=== PATIENT | female | born 1960 | race Caucasian/White ===

== ENCOUNTER 2024-08-18 06:38 | Emergency (ER) | payer OTHER, MEDICAID ==
[2024-08-18] MEDS: Sodium Chloride 0.9% 1,000 ML IV ONE (07:04)
[2024-08-18 07:12] LABS: BASOPHILS PERCENT AUTO 0.7 % (0.2-1.5); EOSINOPHILS ABSOLUTE AUTO 0.1 x10-3/uL (0.0-0.8); EOSINOPHILS PERCENT AUTO 1.6 % (0.6-8.1); HEMATOCRIT 38.3 % (34.2-48.2); HEMOGLOBIN 12.6 g/dL (11.4-15.5); LYMPHOCYTES ABSOLUTE AUTO 1.3 x10-3/uL (1.0-4.4); LYMPHOCYTES PERCENT AUTO 20.6 % (18.4-52.1); MEAN CORPUSCULAR HEMOGLOBIN 31.7 pg (23.9-33.9); MEAN CORPUSCULAR HGB CONC 32.9 g/dL (31.9-34.8); MEAN CORPUSCULAR VOLUME 96.3 fL (76.7-100.5); MEAN PLATELET VOLUME 9.8 fL (7.1-12.4); MONOCYTES ABSOLUTE AUTO 0.6 x10-3/uL (0.3-1.0); NEUTROPHILS ABSOLUTE AUTO 4.1 x10-3/uL (1.5-6.3); NEUTROPHILS PERCENT AUTO 67.1 % (30.8-76.2); PLATELET COUNT,PLT 188 x10(3)uL (151-488); RED BLOOD CELL COUNT 3.98 x10(6)uL (3.60-5.20); WHITE BLOOD CELL COUNT,WBC 6.1 x10-3/uL (3.0-10.3)
[2024-08-18 07:17] LABS: CALCIUM 8.8 mg/dL (8.6-10.2); CARBON DIOXIDE,CO2 29 mmol/L (21-32); CHLORIDE,CL 101 mmol/L (100-110); CREATININE 0.5 mg/dL (0.55-1.02); EST CRCL DRUG DOSING (CG) 79.52 mL/min; ESTIMATED GFR 104 mL/min (>60); GLUCOSE RANDOM 106 mg/dL (80-116); POTASSIUM,K 3.3 mmol/L (3.5-5.3); SODIUM,NA 140 mmol/L (135-145)
[2024-08-18 07:23] LABS: A/G RATIO 0.9; ALANINE AMINOTRANSFERASE,ALT 15 U/L (12-36); ALBUMIN 3.2 g/dL (3.2-4.6); ASPARTATE AMNIOTRANSFERASE,AST 23 IU/L (5-25); BILIRUBIN TOTAL 0.4 mg/dL (0.1-1.3); PROTEIN TOTAL,TP 6.7 g/dL (6.0-8.0)
[2024-08-18 07:35] LABS: ALKALINE PHOSPHATASE 162 IU/L (56-112)
[2024-08-18 07:36] LABS: BLOOD UREA NITROGEN,BUN < 5 mg/dL (7-18)
[2024-08-18 09:06] LABS: APPEARANCE,URINE CLEAR (CLEAR); BILIRUBIN,URINE NEGATIVE (NEGATIVE); COLOR,URINE YELLOW (YELLOW); GLUCOSE,URINE NORMAL (NORMAL); KETONES,URINE 15 mg/dL (NEGATIVE); LEUKOCYTE ESTERASE,URINE NEGATIVE (NEGATIVE); NITRITE,URINE NEGATIVE (NEGATIVE); OCCULT BLOOD,URINE NEGATIVE (NEGATIVE); PROTEIN,URINE NEGATIVE (NEGATIVE); SQUAMOUS EPITHELIAL CELLS,UR OCCASIONAL (NS,R,O); UROBILINOGEN,URINE NORMAL (NEGATIVE); WBC,URINE 0-5 (0-5)
[2024-08-18 09:07] LABS: BACTERIA,URINE FEW (NS)
== END 2024-08-18 10:08 | disposition home or self-care (01) ==
LOC: FB.ED 06:38
DX: R53.81 Other malaise (principal)
CPT/HCPCS: 36415; 70450; 71045; 80053; 81001; 83690; 84443; 85025; 86140; 93005; 96360; 96361; 99285; J7030

== ENCOUNTER 2024-08-22 21:34 | Emergency (ER) | payer OTHER, MEDICAID ==
[2024-08-22 23:29] LABS: BASOPHILS PERCENT AUTO 0.6 % (0.2-1.5); EOSINOPHILS ABSOLUTE AUTO 0.3 x10-3/uL (0.0-0.8); EOSINOPHILS PERCENT AUTO 3.5 % (0.6-8.1); HEMATOCRIT 36.4 % (34.2-48.2); LYMPHOCYTES ABSOLUTE AUTO 1.2 x10-3/uL (1.0-4.4); LYMPHOCYTES PERCENT AUTO 14.1 % (18.4-52.1); MEAN CORPUSCULAR HEMOGLOBIN 32.3 pg (23.9-33.9); MEAN CORPUSCULAR HGB CONC 32.9 g/dL (31.9-34.8); MEAN CORPUSCULAR VOLUME 98.2 fL (76.7-100.5); MEAN PLATELET VOLUME 9.4 fL (7.1-12.4); MONOCYTES ABSOLUTE AUTO 0.6 x10-3/uL (0.3-1.0); MONOCYTES PERCENT AUTO 7.8 % (4.4-15.7); NEUTROPHILS ABSOLUTE AUTO 6.1 x10-3/uL (1.5-6.3); PLATELET COUNT,PLT 216 x10(3)uL (151-488); RED BLOOD CELL COUNT 3.71 x10(6)uL (3.60-5.20); RED CELL DISTRIBUTION WIDTH 15.9 % (12.3-16.5); WHITE BLOOD CELL COUNT,WBC 8.2 x10-3/uL (3.0-10.3)
[2024-08-22 23:36] LABS: BLOOD UREA NITROGEN,BUN 21 mg/dL (7-18); CALCIUM 8.7 mg/dL (8.6-10.2); CARBON DIOXIDE,CO2 28 mmol/L (21-32); CHLORIDE,CL 104 mmol/L (100-110); CREATININE 0.7 mg/dL (0.55-1.02); ESTIMATED GFR 96 mL/min (>60); GLUCOSE RANDOM 103 mg/dL (80-116); POTASSIUM,K 3.8 mmol/L (3.5-5.3); SODIUM,NA 141 mmol/L (135-145)
[2024-08-22] MEDS: HYDROmorphone 2 MG/ML SDV IVPUSH STA (23:38)
[2024-08-22 23:40] LABS: INR 1.12 (1.00-1.24); PROTHROMBIN TIME 11.5 sec (9.0-11.1)
[2024-08-22 23:42] LABS: A/G RATIO 0.9; ALANINE AMINOTRANSFERASE,ALT 22 U/L (12-36); ALBUMIN 3.1 g/dL (3.2-4.6); ALKALINE PHOSPHATASE 155 IU/L (56-112); ASPARTATE AMNIOTRANSFERASE,AST 25 IU/L (5-25); BILIRUBIN TOTAL 0.3 mg/dL (0.1-1.3); PROTEIN TOTAL,TP 6.6 g/dL (6.0-8.0); PTT,PARTIAL THROMBOPLSTIN TIME 30.1 SECONDS (24.4-33.2)
== END 2024-08-23 01:06 ==
LOC: FB.ED 21:34
DX: S72.334A Nondisplaced oblique fracture of shaft of right femur, initial encounter for closed fracture (principal); I10 Essential (primary) hypertension; J44.9 Chronic obstructive pulmonary disease, unspecified; F17.210 Nicotine dependence, cigarettes, uncomplicated; Z79.899 Other long term (current) drug therapy; W10.9XXA Fall (on) (from) unspecified stairs and steps, initial encounter
CPT/HCPCS: 36415; 73502; 73562; 73590; 80053; 85025; 85610; 85730; 96374; 99284; 99285; J1171

== ENCOUNTER 2025-05-16 15:54 | Emergency (ER) | payer MEDICARE ==
[2025-05-16] MEDS: Sodium Chloride 0.9% 1,000 ML IV ONE (16:26)
[2025-05-16 16:37] LABS: BLOOD UREA NITROGEN,BUN 12 mg/dL (7-18); CALCIUM 8.9 mg/dL (8.6-10.2); CARBON DIOXIDE,CO2 30 mmol/L (21-32); CHLORIDE,CL 104 mmol/L (100-110); CREATININE 0.5 mg/dL (0.55-1.02); ESTIMATED GFR 103 mL/min (>60); GLUCOSE RANDOM 149 mg/dL (80-116); POTASSIUM,K 3.8 mmol/L (3.5-5.3); SODIUM,NA 136 mmol/L (135-145)
[2025-05-16 16:43] LABS: ALANINE AMINOTRANSFERASE,ALT 16 U/L (12-36); ALBUMIN 2.9 g/dL (3.2-4.6); ALKALINE PHOSPHATASE 82 IU/L (56-112); ASPARTATE AMNIOTRANSFERASE,AST 15 IU/L (5-25); BILIRUBIN TOTAL 0.3 mg/dL (0.1-1.3); MAGNESIUM 1.5 mg/dL (1.8-2.5); PROTEIN TOTAL,TP 5.8 g/dL (6.0-8.0)
[2025-05-16 16:57] LABS: LACTIC ACID 0.9 mmol/L (0.4-2.0)
[2025-05-16] MEDS: Magnesium Sulfate 2 GM/50 mL 2 GM in Premix Bag 1 BAG IV ONE (17:45)
[2025-05-16] MEDS: Cephalexin 250 MG Cap PO ONE (17:51)
== END 2025-05-16 18:15 | disposition home or self-care (01) ==
LOC: FB.ED 15:54
DX: T81.49XA Infection following a procedure, other surgical site, initial encounter (principal); E83.42 Hypomagnesemia; E77.8 Other disorders of glycoprotein metabolism; I10 Essential (primary) hypertension; J44.9 Chronic obstructive pulmonary disease, unspecified; F17.210 Nicotine dependence, cigarettes, uncomplicated; Z79.899 Other long term (current) drug therapy; Z79.82 Long term (current) use of aspirin
CPT/HCPCS: 36415; 80053; 83605; 83735; 96361; 96365; 99283; A9270; J3475; J7030

== ENCOUNTER 2025-07-12 14:32 | Emergency (ER) | payer MEDICARE, MEDICAID ==
[2025-07-12] MEDS ORDERED: Sodium Chloride 0.9% 10 ML Syringe FLUSH PRN (15:19)
[2025-07-12 15:49] LABS: BASOPHILS ABSOLUTE AUTO 0.0 x10-3/uL (0.0-0.1); BASOPHILS PERCENT AUTO 0.3 % (0.2-1.5); EOSINOPHILS ABSOLUTE AUTO 0.0 x10-3/uL (0.0-0.8); EOSINOPHILS PERCENT AUTO 0.3 % (0.6-8.1); LYMPHOCYTES ABSOLUTE AUTO 1.1 x10-3/uL (1.0-4.4); LYMPHOCYTES PERCENT AUTO 9.0 % (18.4-52.1); MEAN PLATELET VOLUME 10.0 fL (7.1-12.4); MONOCYTES ABSOLUTE AUTO 1.2 x10-3/uL (0.3-1.0); MONOCYTES PERCENT AUTO 9.7 % (4.4-15.7); NEUTROPHILS ABSOLUTE AUTO 9.6 x10-3/uL (1.5-6.3); NEUTROPHILS PERCENT AUTO 80.7 % (30.8-76.2); PLATELET COUNT,PLT 254 x10(3)uL (151-488); RED BLOOD CELL COUNT 3.77 x10(6)uL (3.60-5.20); RED CELL DISTRIBUTION WIDTH 14.7 % (12.3-16.5); WHITE BLOOD CELL COUNT,WBC 11.9 x10-3/uL (3.0-10.3)
[2025-07-12 15:50] LABS: BLOOD UREA NITROGEN,BUN 22 mg/dL (7-18); CARBON DIOXIDE,CO2 30 mmol/L (21-32); CHLORIDE,CL 100 mmol/L (100-110); CREATININE 0.9 mg/dL (0.55-1.02); EST CRCL DRUG DOSING (CG) 42.71 mL/min; ESTIMATED GFR 71 mL/min (>60); GLUCOSE RANDOM 100 mg/dL (80-116); POTASSIUM,K 4.1 mmol/L (3.5-5.3); SODIUM,NA 136 mmol/L (135-145)
[2025-07-12 15:56] LABS: A/G RATIO 0.8; ALANINE AMINOTRANSFERASE,ALT 21 U/L (12-36); ASPARTATE AMNIOTRANSFERASE,AST 26 IU/L (5-25); BILIRUBIN TOTAL 0.3 mg/dL (0.1-1.3); PROTEIN TOTAL,TP 6.9 g/dL (6.0-8.0)
[2025-07-12] MEDS: Iopamidol 755 Mg/ML 100 ML Bottle IV ONE (18:05)
[2025-07-12 19:49] LABS: GLUCOSE,URINE NORMAL (NORMAL); OCCULT BLOOD,URINE TRACE (NEGATIVE)
[2025-07-12 19:53] LABS: APPEARANCE,URINE SLIGHTLY CLOUDY (CLEAR)
[2025-07-12 19:54] LABS: SQUAMOUS EPITHELIAL CELLS,UR FEW (NS,R,O)
== END 2025-07-12 22:45 | disposition home or self-care (01) ==
LOC: FB.ED 14:32
DX: N39.0 Urinary tract infection, site not specified (principal); T81.718A Complication of other artery following a procedure, not elsewhere classified, initial encounter; I10 Essential (primary) hypertension; J44.9 Chronic obstructive pulmonary disease, unspecified; F17.200 Nicotine dependence, unspecified, uncomplicated; Z79.899 Other long term (current) drug therapy
CPT/HCPCS: 36415; 73706; 74174; 80053; 81001; 83735; 85025; 86140; 87086; 87088; 87186; 96374; 99284; J0696; Q9967

== ENCOUNTER 2025-07-13 00:23 | Emergency (ER) | payer MEDICARE, MEDICAID | END 2025-07-13 03:06 | disposition home or self-care (01) | LOC: FB.ED 00:23 | DX: L76.22 Postprocedural hemorrhage of skin and subcutaneous tissue following other procedure (principal); I10 Essential (primary) hypertension; J44.9 Chronic obstructive pulmonary disease, unspecified; Z79.82 Long term (current) use of aspirin; Z79.899 Other long term (current) drug therapy | CPT/HCPCS: 36415; 85018; 96365; 99283-25 ==

== ENCOUNTER 2025-08-16 19:16 | Emergency (ER) | payer MEDICARE, MEDICAID ==
[2025-08-16] MEDS ORDERED: Sodium Chloride 0.9% 10 ML Syringe FLUSH PRN (19:55)
[2025-08-16 20:13] LABS: BASOPHILS ABSOLUTE AUTO 0.0 x10-3/uL (0.0-0.1); BASOPHILS PERCENT AUTO 0.4 % (0.2-1.5); EOSINOPHILS ABSOLUTE AUTO 0.0 x10-3/uL (0.0-0.8); EOSINOPHILS PERCENT AUTO 0.2 % (0.6-8.1); LYMPHOCYTES ABSOLUTE AUTO 1.5 x10-3/uL (1.0-4.4); LYMPHOCYTES PERCENT AUTO 14.3 % (18.4-52.1); MEAN PLATELET VOLUME 8.3 fL (7.1-12.4); MONOCYTES ABSOLUTE AUTO 0.8 x10-3/uL (0.3-1.0); MONOCYTES PERCENT AUTO 7.9 % (4.4-15.7); NEUTROPHILS ABSOLUTE AUTO 8.0 x10-3/uL (1.5-6.3); NEUTROPHILS PERCENT AUTO 77.2 % (30.8-76.2); PLATELET COUNT,PLT 445 x10(3)uL (151-488); RED BLOOD CELL COUNT 3.00 x10(6)uL (3.60-5.20); RED CELL DISTRIBUTION WIDTH 14.9 % (12.3-16.5); WHITE BLOOD CELL COUNT,WBC 10.4 x10-3/uL (3.0-10.3)
[2025-08-16 20:17] LABS: BLOOD UREA NITROGEN,BUN 10 mg/dL (7-18); CARBON DIOXIDE,CO2 31 mmol/L (21-32); CHLORIDE,CL 98 mmol/L (100-110); CREATININE 0.4 mg/dL (0.55-1.02); EST CRCL DRUG DOSING (CG) 102.04 mL/min; ESTIMATED GFR 109 mL/min (>60); GLUCOSE RANDOM 86 mg/dL (80-116); POTASSIUM,K 3.1 mmol/L (3.5-5.3); SODIUM,NA 135 mmol/L (135-145)
[2025-08-16 20:22] LABS: A/G RATIO 0.5; ALANINE AMINOTRANSFERASE,ALT 12 U/L (12-36); ASPARTATE AMNIOTRANSFERASE,AST 26 IU/L (5-25); BILIRUBIN TOTAL 0.2 mg/dL (0.1-1.3); PROTEIN TOTAL,TP 6.3 g/dL (6.0-8.0)
[2025-08-16] MEDS: Ondansetron 4 MG/2 ML SDV IVPUSH ONE (20:30)
[2025-08-16] MEDS: Ketorolac 30 MG/ML SDV IVPUSH ONE (20:49)
[2025-08-16] MEDS: Iopamidol 755 Mg/ML 100 ML Bottle IV SCH (21:11)
[2025-08-16 22:19] LABS: GLUCOSE,URINE NORMAL (NORMAL); OCCULT BLOOD,URINE NEGATIVE (NEGATIVE)
[2025-08-16 22:25] LABS: APPEARANCE,URINE SLIGHTLY CLOUDY (CLEAR)
[2025-08-16 22:26] LABS: SQUAMOUS EPITHELIAL CELLS,UR MODERATE (NS,R,O)
[2025-08-16] MEDS: Potassium Chloride 20 MEQ Tab.ER PO ONE (23:09)
== END 2025-08-16 23:58 | disposition home or self-care (01) ==
LOC: FB.ED 19:16
DX: K52.9 Noninfective gastroenteritis and colitis, unspecified (principal); N39.0 Urinary tract infection, site not specified; E87.6 Hypokalemia; E83.42 Hypomagnesemia; E86.0 Dehydration; D50.9 Iron deficiency anemia, unspecified; I10 Essential (primary) hypertension; J44.9 Chronic obstructive pulmonary disease, unspecified; F17.200 Nicotine dependence, unspecified, uncomplicated; Z79.899 Other long term (current) drug therapy; Z79.82 Long term (current) use of aspirin
CPT/HCPCS: 36415; 74177; 80053; 81001; 83605; 83735; 85025; 86140; 87086; 87088; 87186; 96361; 96374; 96375; 99285; A9270; J0696; J1885; J2405; J7030; Q9967

== ENCOUNTER 2025-09-02 10:01 | Emergency (ER) | payer MEDICARE, MEDICAID ==
[2025-09-02 11:17] LABS: BASOPHILS ABSOLUTE AUTO 0.1 x10-3/uL (0.0-0.1); BASOPHILS PERCENT AUTO 0.7 % (0.2-1.5); EOSINOPHILS ABSOLUTE AUTO 0.0 x10-3/uL (0.0-0.8); EOSINOPHILS PERCENT AUTO 0.2 % (0.6-8.1); LYMPHOCYTES ABSOLUTE AUTO 1.3 x10-3/uL (1.0-4.4); LYMPHOCYTES PERCENT AUTO 14.4 % (18.4-52.1); MEAN PLATELET VOLUME 8.8 fL (7.1-12.4); MONOCYTES ABSOLUTE AUTO 0.8 x10-3/uL (0.3-1.0); MONOCYTES PERCENT AUTO 9.0 % (4.4-15.7); NEUTROPHILS ABSOLUTE AUTO 6.8 x10-3/uL (1.5-6.3); NEUTROPHILS PERCENT AUTO 75.7 % (30.8-76.2); PLATELET COUNT,PLT 416 x10(3)uL (151-488); RED CELL DISTRIBUTION WIDTH 17.0 % (12.3-16.5); WHITE BLOOD CELL COUNT,WBC 9.0 x10-3/uL (3.0-10.3)
[2025-09-02 11:20] LABS: BLOOD UREA NITROGEN,BUN 9 mg/dL (7-18); CARBON DIOXIDE,CO2 32 mmol/L (21-32); CHLORIDE,CL 98 mmol/L (100-110); CREATININE 0.5 mg/dL (0.55-1.02); EST CRCL DRUG DOSING (CG) 91.14 mL/min; ESTIMATED GFR 103 mL/min (>60); GLUCOSE RANDOM 135 mg/dL (80-116); POTASSIUM,K 3.0 mmol/L (3.5-5.3); SODIUM,NA 136 mmol/L (135-145)
[2025-09-02 11:23] LABS: GLUCOSE,URINE NORMAL (NORMAL); OCCULT BLOOD,URINE NEGATIVE (NEGATIVE)
[2025-09-02 11:26] LABS: A/G RATIO 0.6; ALANINE AMINOTRANSFERASE,ALT 9 U/L (12-36); ASPARTATE AMNIOTRANSFERASE,AST 21 IU/L (5-25); BILIRUBIN TOTAL 0.4 mg/dL (0.1-1.3); PROTEIN TOTAL,TP 6.8 g/dL (6.0-8.0)
[2025-09-02 11:27] LABS: APPEARANCE,URINE CLEAR (CLEAR)
[2025-09-02 11:28] LABS: SQUAMOUS EPITHELIAL CELLS,UR FEW (NS,R,O)
[2025-09-02 11:30] LABS: RED BLOOD CELL COUNT 3.58 x10(6)uL (3.60-5.20)
[2025-09-02] MEDS: Acetaminophen/HYDROcodone 325-7.5 MG Tab PO ONE (12:16)
[2025-09-02] MEDS: Potassium Chloride 20 MEQ Tab.ER PO ONE (12:44)
== END 2025-09-02 13:22 | disposition home or self-care (01) ==
LOC: FB.ED 10:01
DX: G89.29 Other chronic pain (principal); S31.103A Unspecified open wound of abdominal wall, right lower quadrant without penetration into peritoneal cavity, initial encounter; M81.0 Age-related osteoporosis without current pathological fracture; M40.50 Lordosis, unspecified, site unspecified; E87.6 Hypokalemia; E83.42 Hypomagnesemia; J44.9 Chronic obstructive pulmonary disease, unspecified; I10 Essential (primary) hypertension; F17.200 Nicotine dependence, unspecified, uncomplicated; Z79.82 Long term (current) use of aspirin; Z79.899 Other long term (current) drug therapy; X58.XXXA Exposure to other specified factors, initial encounter
CPT/HCPCS: 36415; 74176; 74176-26; 80053; 81001; 83735; 85025; 86140; 87086; 99284; A9270-GY

== ENCOUNTER 2025-09-29 13:00 | Inpatient (IN) | payer MEDICARE, MEDICAID ==
[2025-09-29] MEDS ORDERED: Non-Formulary Medication 1 Each (Aspirin/Acetaminophen/Caffeine [Excedrin Migraine Caplet] PO PRN (15:03)
[2025-09-29] MEDS ORDERED: Non-Formulary Medication 1 Each (Alendronate Sodium [Alendronate Sodium] 70 MG Tablet) PO SCH (15:15)
[2025-09-29] MEDS: Acetaminophen/HYDROcodone 325-7.5 MG Tab PO PRN (16:44)
[2025-09-30] MEDS: Sodium Chloride 0.9% 10 ML Syringe FLUSH PRN (00:28)
[2025-10-05 16:18] LABS: CREATININE 0.5 mg/dL (0.55-1.02); EST CRCL DRUG DOSING (CG) 0.19 mL/min; ESTIMATED GFR 103.0 mL/min (>60)
[2025-10-05] MEDS: Iopamidol 755 Mg/ML 100 ML Bottle IV SCH (17:50)
[2025-10-05 19:05] LABS: BASOPHILS ABSOLUTE AUTO 0.0 x10-3/uL (0.0-0.1); BASOPHILS PERCENT AUTO 0.5 % (0.2-1.5); EOSINOPHILS ABSOLUTE AUTO 0.2 x10-3/uL (0.0-0.8); EOSINOPHILS PERCENT AUTO 2.5 % (0.6-8.1); LYMPHOCYTES ABSOLUTE AUTO 1.2 x10-3/uL (1.0-4.4); LYMPHOCYTES PERCENT AUTO 16.6 % (18.4-52.1); MEAN PLATELET VOLUME 9.1 fL (7.1-12.4); MONOCYTES ABSOLUTE AUTO 0.6 x10-3/uL (0.3-1.0); MONOCYTES PERCENT AUTO 8.6 % (4.4-15.7); NEUTROPHILS ABSOLUTE AUTO 5.0 x10-3/uL (1.5-6.3); NEUTROPHILS PERCENT AUTO 71.8 % (30.8-76.2); PLATELET COUNT,PLT 215 x10(3)uL (151-488); POTASSIUM,K 4.2 mmol/L (3.5-5.3); RED CELL DISTRIBUTION WIDTH 20.0 % (12.3-16.5); WHITE BLOOD CELL COUNT,WBC 7.0 x10-3/uL (3.0-10.3)
[2025-10-05 19:18] LABS: RED BLOOD CELL COUNT 3.59 x10(6)uL (3.60-5.20)
[2025-10-05] MEDS: Ondansetron 4 MG Tab.DIS PO PRN (22:21)
[2025-10-06] MEDS ORDERED: Naloxone 0.4 MG/ML SDV IVPUSH PRN (14:08)
[2025-10-07 06:43] LABS: BASOPHILS ABSOLUTE AUTO 0.1 x10-3/uL (0.0-0.1); BASOPHILS PERCENT AUTO 0.9 % (0.2-1.5); EOSINOPHILS ABSOLUTE AUTO 0.1 x10-3/uL (0.0-0.8); EOSINOPHILS PERCENT AUTO 1.9 % (0.6-8.1); LYMPHOCYTES ABSOLUTE AUTO 1.2 x10-3/uL (1.0-4.4); LYMPHOCYTES PERCENT AUTO 17.1 % (18.4-52.1); MEAN PLATELET VOLUME 9.4 fL (7.1-12.4); MONOCYTES ABSOLUTE AUTO 0.7 x10-3/uL (0.3-1.0); MONOCYTES PERCENT AUTO 9.9 % (4.4-15.7); NEUTROPHILS ABSOLUTE AUTO 4.7 x10-3/uL (1.5-6.3); NEUTROPHILS PERCENT AUTO 70.2 % (30.8-76.2); PLATELET COUNT,PLT 223 x10(3)uL (151-488); RED CELL DISTRIBUTION WIDTH 19.3 % (12.3-16.5); WHITE BLOOD CELL COUNT,WBC 6.8 x10-3/uL (3.0-10.3)
[2025-10-07 06:55] LABS: A/G RATIO 0.6; ALANINE AMINOTRANSFERASE,ALT 11 U/L (12-36); ASPARTATE AMNIOTRANSFERASE,AST 23 IU/L (5-25); BILIRUBIN TOTAL 0.2 mg/dL (0.1-1.3); BLOOD UREA NITROGEN,BUN 12 mg/dL (7-18); CARBON DIOXIDE,CO2 31 mmol/L (21-32); CHLORIDE,CL 99 mmol/L (100-110); CREATININE 0.4 mg/dL (0.55-1.02); EST CRCL DRUG DOSING (CG) 112.14 mL/min; ESTIMATED GFR 109 mL/min (>60); GLUCOSE RANDOM 154 mg/dL (80-116); POTASSIUM,K 4.0 mmol/L (3.5-5.3); PROTEIN TOTAL,TP 6.5 g/dL (6.0-8.0); SODIUM,NA 138 mmol/L (135-145)
[2025-10-07 07:22] LABS: RED BLOOD CELL COUNT 3.97 x10(6)uL (3.60-5.20)
[2025-10-15] MEDS: Aluminum Hydroxide/Magnesium Hydroxide Susp 30 ML Cup PO PRN (13:59)
[2025-10-29] MEDS: Aluminum Hydroxide/Magnesium Hydroxide Susp 30 ML Cup PO PRN (14:21)
== END 2025-10-29 15:27 | disposition home health service (06) | DRG 948 ==
LOC: FB.MS 13:00
PROVIDERS: ADMIT Family Medicine; ATTEND Internal Medicine
DX: R53.81 Other malaise (principal); T82.7XXA Infection and inflammatory reaction due to other cardiac and vascular devices, implants and grafts, initial encounter; I97.648 Postprocedural seroma of a circulatory system organ or structure following other circulatory system procedure; R78.81 Bacteremia; B95.61 Methicillin susceptible Staphylococcus aureus infection as the cause of diseases classified elsewhere; I10 Essential (primary) hypertension; I73.9 Peripheral vascular disease, unspecified; G89.29 Other chronic pain; M81.0 Age-related osteoporosis without current pathological fracture; E66.9 Obesity, unspecified; F17.210 Nicotine dependence, cigarettes, uncomplicated; S92.514A Nondisplaced fracture of proximal phalanx of right lesser toe(s), initial encounter for closed fracture; W17.89XA Other fall from one level to another, initial encounter; Y92.129 Unspecified place in nursing home as the place of occurrence of the external cause; Z46.89 Encounter for fitting and adjustment of other specified devices; Z79.899 Other long term (current) drug therapy; Z79.82 Long term (current) use of aspirin; Z79.1 Long term (current) use of non-steroidal anti-inflammatories (NSAID); Z98.51 Tubal ligation status; Z98.890 Other specified postprocedural states; Z91.199 Patient's noncompliance with other medical treatment and regimen due to unspecified reason
CPT/HCPCS: 36415; 72191; 73660-RT; 80053; 82565; 83735; 84132; 85025; 86140; 97116-GP; 97161-GP; 97165-GO; 97530-GO; 97530-GP; 97535-GO; 99306; 99308; 99309; 99315; A6550; A9270-GY; J0690; J2270; Q0162; Q9967